=== PATIENT | male | born 1955 | race Caucasian/White ===

== ENCOUNTER 2019-05-02 08:53 | Day surgery (SDC) | payer BC ==
[2019-05-02] MEDS ORDERED: LIDOCAINE 2% MDV (20MG/ML) 20ML VIAL IV ONE (08:54)
[2019-05-02] MEDS ORDERED: PROPOFOL 10 MG/ML VIAL IV ONE (08:54)
--- NOTE | 2019-05-03 10:31 | Operative Note ---
OPERATION: COLONOSCOPY to the cecum with cold biopsy forceps polypectomy x1. INDICATION: History of adenomatous polyps. The patient's last examination was approximately 4 years ago. He presents today for surveillance. ANESTHESIA: Intravenous sedation was administered by the department of anesthesiology and included Diprivan titrated to effect. PROCEDURE: Following informed consent from this alert individual including a discussion of the risks and benefits of the procedure and an opportunity for the patient to ask questions, the patient was in the left lateral decubitus position. A digital rectal examination was performed. No abnormalities were noted. Following this, the Olympus [id number] video colonoscope was inserted into the rectum without resistance. The rectal mucosa had a normal appearance with normal folds and distensibility. The colonoscope was advanced up through the colon to the level of the cecum without much difficulty. Throughout the bowel the mucosa appeared normal, the folds were normal, and the bowel was fairly well distensible. Scattered diverticula were noted in the sigmoid colon. The cecum was defined by noting the appendiceal orifice and ileocecal valve. The colon preparation overall was adequate. From the base of the cecum, the colonoscope was then slowly withdrawn. In the transverse colon was a diminutive 3-4 mm polyp noted along a fold which was removed with cold biopsy forceps. No other polyps were seen throughout, and sigmoid diverticulosis was apparent and moderate in degree. Retroflexion in the rectum failed to demonstrate any changes. The endoscope was removed. The patient tolerated the procedure well and was returned to the recovery area in stable condition. IMPRESSION: 1. A 3-4 mm transverse colon polyp removed with biopsy forceps. 2. Sigmoid diverticulosis. RECOMMENDATIONS: The patient will most likely be advised to have recheck colonoscopy in 5 years' time pending pathology. He should receive a copy of his pathology report at home in the next 2 weeks. If not, he was asked to call my office to review the results of testing today. followup will also be with his primary care physician, Tia Ballard, nurse practitioner. As always, thank you for allowing me to participate in the care of your patient. AMBIKA
== END 2019-05-02 11:00 | disposition home or self-care (01) ==
LOC: HOP 08:53
PROVIDERS: ATTEND Internal Medicine Gastroenterology
DX: Z12.11 Encounter for screening for malignant neoplasm of colon (principal); Z86.010 Personal history of colon polyps; D12.3 Benign neoplasm of transverse colon; K57.30 Diverticulosis of large intestine without perforation or abscess without bleeding; I50.9 Heart failure, unspecified